=== PATIENT | male | born 1990 | race Caucasian/White ===

== ENCOUNTER 2021-07-09 19:40 | Emergency (ER) | payer MEDICAID ==
[~2021-07-09] VITALS: Ht 165.1 cm; Wt 98.0 kg
[2021-07-09 19:57] VITALS: BP 111/75
== END 2021-07-09 20:50 | disposition home or self-care (01) ==
LOC: ER 19:40
DX: T17.828A Food in other parts of respiratory tract causing other injury, initial encounter (principal)
CPT/HCPCS: 71046; 99283

== ENCOUNTER 2023-08-09 11:04 | Emergency (ER) | payer MEDICAID ==
[~2023-08-09] VITALS: Ht 175.3 cm; Wt 90.9 kg
[2023-08-09 11:12] VITALS: BP 116/68; PULSE 65; RESP 16; TEMP 98.4; O2SAT 97
== END 2023-08-09 14:23 | disposition home or self-care (01) ==
LOC: ER 11:04
DX: T18.0XXA Foreign body in mouth, initial encounter (principal); W44.E9XA Other non-magnetic metal objects entering into or through a natural orifice, initial encounter; Y93.89 Activity, other specified; Y92.89 Other specified places as the place of occurrence of the external cause; Y99.8 Other external cause status
CPT/HCPCS: 71045; 74018; 99284

== ENCOUNTER 2023-09-25 19:10 | Emergency (ER) | payer MEDICAID ==
[~2023-09-25] VITALS: Ht 165.1 cm; Wt 93.2 kg
[2023-09-25 19:18] VITALS: BP 119/76; PULSE 74; RESP 18; O2SAT 96
[2023-09-25 21:55] VITALS: TEMP 98
== END 2023-09-25 22:15 | disposition home or self-care (01) ==
LOC: ER 19:11
DX: S93.505A Unspecified sprain of left lesser toe(s), initial encounter (principal); X50.1XXA Overexertion from prolonged static or awkward postures, initial encounter; Y93.89 Activity, other specified; Y92.89 Other specified places as the place of occurrence of the external cause; Y99.8 Other external cause status
CPT/HCPCS: 73630; 99283

== ENCOUNTER 2023-11-09 11:16 | Emergency (ER) | payer MEDICAID ==
[~2023-11-09] VITALS: Ht 172.7 cm; Wt 86.3 kg
[2023-11-09 11:28] VITALS: TEMP 97.8
[2023-11-09] MEDS: dexamethasone sod phosphate 10mg/ml inj IM STA (12:31)
[2023-11-09] MEDS ORDERED: LIDOCAINE 1%/EPI 1:100,000 inj. 10 ML multi-dose vial IJ STA (12:34)
[2023-11-09] MEDS ORDERED: TRIA15CR61 TOP (12:34)
[2023-11-09] MEDS: LIDOcaine 1% W/epiNEPHrine 1:100,000 20ml vial IJ STA (12:43)
[2023-11-09] MEDS: ketorolac trometh 30MG/ML vial 30 MG/ML VIAL IM ONE (12:43)
[2023-11-09 13:28] VITALS: BP 98/113; PULSE 57; RESP 16; O2SAT 69
== END 2023-11-09 13:30 | disposition home or self-care (01) ==
LOC: ER 11:16
DX: L23.89 Allergic contact dermatitis due to other agents (principal)
CPT/HCPCS: 96372; 99284; J1100; J1885; J3490

== ENCOUNTER 2023-11-24 10:41 | Emergency (ER) | payer MEDICAID ==
[~2023-11-24] VITALS: Ht 177.8 cm; Wt 77.3 kg
[~2023-11-24 10:41] MED LIST: TRIA15CR61 TOP
[2023-11-24 10:52] VITALS: BP 121/79; PULSE 77; RESP 16; TEMP 98; O2SAT 97
[2023-11-24 13:49] LABS: STREP A SCREEN NEGATIVE (Neg)
== END 2023-11-24 15:27 | disposition home or self-care (01) ==
LOC: ER 10:42
DX: J02.9 Acute pharyngitis, unspecified (principal); J06.9 Acute upper respiratory infection, unspecified; Z79.899 Other long term (current) drug therapy; Z20.822 Contact with and (suspected) exposure to COVID-19
CPT/HCPCS: 36415; 87081; 87502; 87503; 87811; 87880; 99283